=== PATIENT | male | born 1970 | race Caucasian/White ===

== ENCOUNTER 2018-12-01 19:21 | Emergency (ER) | payer OTHER ==
[~2018-12-01] VITALS: Ht 177.8 cm; Wt 86.2 kg
[~2018-12-01 19:21] MED LIST: NORCO 5-325 TA1 EACH PO; SOMINEX PO
[2018-12-01 21:16] VITALS: BP 156/91
== END 2018-12-01 21:12 ==
LOC: ER 19:21
DX: S81.011A Laceration without foreign body, right knee, initial encounter (principal); W26.0XXA Contact with knife, initial encounter; Y93.89 Activity, other specified; Y92.89 Other specified places as the place of occurrence of the external cause; Y99.8 Other external cause status

== ENCOUNTER 2018-12-14 13:24 | Emergency (ER) | payer OTHER ==
[~2018-12-14] VITALS: Ht 177.8 cm; Wt 86.2 kg
[2018-12-14 13:24] VITALS: BP 135/79
== END 2018-12-14 13:35 | disposition home or self-care (01) ==
LOC: ER 13:24
DX: S81.011D Laceration without foreign body, right knee, subsequent encounter (principal); X58.XXXD Exposure to other specified factors, subsequent encounter